=== PATIENT | male | born 1970 | race Hispanic/Latino ===

== ENCOUNTER → 2024-06-13 | Emergency (ER) | payer SELFPAY ==
[~2024-06-13] VITALS: Ht 175.3 cm; Wt 117.9 kg
[2024-06-13 18:40] VITALS: BP 121/68; PULSE 92; RESP 16; TEMP 98.1
== END ==
LOC: EDH 18:39
DX: S51.812A Laceration without foreign body of left forearm, initial encounter (principal); Z53.21 Procedure and treatment not carried out due to patient leaving prior to being seen by health care provider; X58.XXXA Exposure to other specified factors, initial encounter; Y93.89 Activity, other specified; Y92.89 Other specified places as the place of occurrence of the external cause; Y99.8 Other external cause status